=== PATIENT | male | born 1960 | race Two or more races ===

== ENCOUNTER → 2024-02-27 | Outpatient (CLI) | payer MEDICARE, MEDICAID, SELFPAY ==
--- NOTE | 2024-02-27 10:28 | XR_ITS ---
Examination: Foot, right, 3 views Technique: AP, oblique, lateral views foot, 3 views Date and time of exam: February 27, 2024 1142 hours INDICATIONS: Right foot pain beginning one week ago. FINDINGS: Moderate narrowing first metatarsophalangeal joint 4 mm plantar bony calcaneal spur. No fracture or dislocation. No cortical bone destruction Mild narrowing tibiotalar joint IMPRESSION: Moderate narrowing first metatarsophalangeal joint Mild osteoarthritis tibiotalar joint 4 mm plantar bony calcaneal spur
== END | disposition home or self-care (01) ==
PROVIDERS: PCP Family Medicine; Referring Provider Podiatrist; Visit Provider Podiatrist
DX: M19.071 Primary osteoarthritis, right ankle and foot (principal); M77.31 Calcaneal spur, right foot; M25.871 Other specified joint disorders, right ankle and foot
CPT/HCPCS: 73630

== ENCOUNTER → 2024-05-25 | Outpatient (CLI) | payer MEDICARE, MEDICAID, SELFPAY ==
--- NOTE | 2024-05-25 07:00 | XR_ITS ---
Examination: MRI right foot, without contrast Date and time of exam: May 25, 2024 0724 hrs. Indications: With pain 2 months with walking, diabetic Technique: Multiple axial sagittal and coronal images of the right foot have been obtained with the Siemens high-resolution 1.5 [employer] MRI scanner. Images obtained include T2-weighted fat-suppressed sagittal sections, TR 3500, TE 46, T2 weighted coronal fat suppressed images, TR 3050, TE 84, T2-weighted transverse fat suppressed images, TR 3260, TE 63, proton density transverse images, TR 4720 TE 46, and T1 weighted coronal images, TR 560, TE 13. Findings: Moderate osteoarthritis first metatarsophalangeal joint No fracture No avascular necrosis Significant osteoarthritis first tarsometatarsal joint No soft tissue abscess No cortical bone destruction Mild narrowing tibiotalar joint Mild plantar fasciitis Impression: Moderate osteoarthritis first metatarsophalangeal joint Significant osteoarthritis first tarsometatarsal
== END | disposition home or self-care (01) ==
LOC: SMRI 06:58
PROVIDERS: PCP Family Medicine; Referring Provider Internal Medicine Gastroenterology; Visit Provider Internal Medicine Gastroenterology
DX: M19.071 Primary osteoarthritis, right ankle and foot (principal)
CPT/HCPCS: 73718

== ENCOUNTER 2025-01-24 09:08 | Emergency (ER) | payer MEDICARE, MEDICAID, SELFPAY ==
[2025-01-24 09:09] VITALS: BMI 30.2
[2025-01-24 09:33] VITALS: BP 140/97; PULSE 68; RESP 18; TEMP 36.9; O2SAT 98
--- NOTE | 2025-01-24 09:34 | XR_ITS ---
Examination: CT abdomen and pelvis without contrast. Coronal 3-D reconstructions. Sagittal 2-D reconstructions. Date and time of exam: January 24, 2025, 10:16 a.m. INDICATIONS: Left testicular pain lower abdominal pain today CTDI: vol (mGy): 7.84 DLP: (mGycm): 488 Technique: Axial images of the abdomen have been obtained, 3 mm slice thickness Intravenous contrast material has not been administered. Low dose protocols were performed. One or more of the following dose reduction techniques were used; automated exposure control, adjustment of the mA and/or KV according to patient size, use of iterative reconstruction technique. Findings: No visualized liver or splenic lesion No gallstones No pancreatic or adrenal mass Minimal perinephric stranding No renal or ureteral calculi, no hydronephrosis Normal appendix Prostatomegaly, transverse dimension 5.5 cm Contracted urinary bladder with mild urinary bladder wall thickening Fat-containing inguinal hernias IMPRESSION: Minimal perinephric stranding, consider urinary tract infection No renal or ureteral calculi, no hydronephrosis Normal appendix Moderate prostatomegaly Urinary bladder wall thickening, mild, consider cystitis
--- NOTE | 2025-01-24 09:47 | EDNOTE_ITS ---
<Statement entered by Amee Real MD - 01/24/25 17:56> As co-signing physician, I was present and available for consult prn. I concur with the plan and care as documented by the midlevel provider. ED Abdominal Pain RME/HPI General Chief Complaint: Abdominal Pain Stated complaint: ABD PAIN FOR 3 DAYS Time seen by provider: 01/24/25 09:35 Arrival date/time: 01/24/25 09:08 64-year-old male with a history of hyperlipidemia, type 2 diabetes presents to the emergency room with a chief complaint of left groin pain x 3 days Source: patient Mode of arrival: ambulatory Limitations: no limitations Related Data Home Medications ?Medication ?Instructions ?Recorded ?Confirmed lisinopril 10 mg tablet 10 mg PO QDAY 01/18/2009/16 metformin 1,000 mg tablet 1,000 mg PO QDAY 01/18/20 atorvastatin 40 mg tablet 40 mg PO HS 09/17/23 4 empagliflozin 25 mg tablet 25 mg PO QDAY 09/17/2306/07 (Jardiance) gabapentin 300 mg capsule 300 mg PO HS 09/17/23 insulin glargine U-300 conc 300 12 unit subcut HS 06/0709/17/23 unit/mL (1.5 mL) subcutaneous pen (Toujeo SoloStar U-300 Insulin) mometasone-formoterol HFA 200 2 puff inhalation BID 09/17/23 mcg-5 mcg/actuation aerosol inhaler (Dulera) semaglutide 0.25 mg or 0.5 mg (2 0.25 mg subcut QMONTH 09/17/23 09/17/23 mg/3 mL) subcutaneous pen injector (Ozempic) Previous Rx's ?Medication ?Instructions ?Recorded acetaminophen 325 mg capsule 650 mg (2 x 325 mg) PO QI D PRN 01/24/25 fever or pain 7 days #30 caps Allergies Allergy/AdvReac Type Severity Reaction Status Date / Time No Known Allergies Allergy Verified 01/24/25 09:10 Review of Systems Review of Systems Systems Reviewed: All systems reviewed, normal except as documented Constitutional Constitutional: Reports system reviewed and no additional complaints, except as documented, Denies fatigue, Denies fever(s), Denies headache(s) and Denies weakness Eyes Eyes: Reports system reviewed and no additional complaints, except as documented, Denies blurry vision and Denies change in vision ENT Ears, Nose, Mouth, and Throat: Reports system reviewed and no additional complaints, except as documented, Denies otalgia, Denies headache(s), Denies nasal congestion, Denies throat swelling and Denies vertigo Cardiovascular Cardiovascular: Reports system reviewed and no additional complaints, except as documented, Denies chest pain, Denies dyspnea and Denies dyspnea on exertion Respiratory Respiratory: Reports system reviewed and no additional complaints, except as documented, Denies chest congestion, Denies cough, Denies dyspnea, Denies dyspnea on exertion and Denies wheezing Gastrointestinal Gastrointestinal: Reports system reviewed and no additional complaints, except as documented, Reports abdominal pain, Reports cramping, Reports nausea and Denies vomiting Genitourinary Genitourinary: Reports system reviewed and no additional complaints, except as documented, Denies dysuria and Denies hematuria Musculoskeletal Musculoskeletal: Reports system reviewed and no additional complaints, except as documented and Denies back pain Integumentary/Breasts Skin/Breast: Reports system reviewed and no additional complaints, except as documented and Denies wounds Neurologic Neurologic: Reports system reviewed and no additional complaints, except as documented, Denies confusion, Denies headache(s), Denies lack of coordination, Denies vertigo and Denies weakness Psychiatric Psychiatric: Reports system reviewed and no additional complaints, except as documented, Denies anxiety, Denies confusion, Denies depression, Denies paranoia, Denies suicidal ideation and Denies tactile hallucinations Endocrine Endocrine: Reports system reviewed and no additional complaints, except as documented and Denies fatigue Hematologic/Lymphatic Hematologic/Lymphatic: Reports system reviewed and no additional complaints, except as documented and Denies lymphadenopathy Allergic/Immunologic Allergic/Immunologic: Reports system reviewed and no additional complaints, except as documented, Denies throat swelling, Denies urticaria and Denies wheezing Past Medical History Past Medical History NEUROLOGIC: Negative Seizures CARDIAC: Positive Cardiac Disorders, Hypercholesterolemia and Hypertension; Negative Congestive Heart Failure RESPIRATORY: Negative Chronic Obstructive Pulmonary Disease (COPD) GASTROINTESTINAL: Positive Gastrointestinal Disorders GENITOURINARY: Negative Genitourinary Disorders or Renal Disease MUSCULOSKELETAL: Negative Musculoskeletal Disorders ENDOCRINE: Positive Endocrine Disorders and Diabetes Mellitus Type 2; Negative Diabetes Mellitus Type 1 HEMATOLOGIC: Negative Blood Disorders OTHER HISTORY: Negative Autoimmune Disease, Blood Transfusions, Blood Transfusion Reaction, Anesthesia Reactions or Cancer Social History SMOKING STATUS: Never smoker ED Exam General Limitations: Present no limitations General appearance: Present alert and in no apparent distress Head Head exam: Present atraumatic Eye Eye exam: Present normal appearance, PERRL and EOMI ENT ENT exam: Present normal exam, normal oropharynx and mucous membranes moist Neck Neck exam: Present normal inspection, full ROM and trachea midline Chest Chest inspection: Present normal inspection and symmetric chest wall rise Respiratory Respiratory exam: Present normal lung sounds bilaterally Cardiovascular Cardiovascular exam: Present regular rate, normal rhythm and normal heart sounds Abdominal Exam Abdominal exam: Present soft, tenderness and normal bowel sounds; Absent distention, guarding, rebound, rigidity, Gomez's sign, Rovsing's sign or tenderness at McBurney's Point Abdominal tenderness: Present LLQ, suprapubic and mild Extremities Exam Extremities exam: Present normal inspection and full ROM Back Exam Back exam: Present normal inspection and full ROM Neurological Exam Neurological exam: Present alert, oriented X3 and CN II-XII intact Psychiatric Psychiatric exam: Present normal affect and normal mood Skin Skin exam: Present warm, dry, intact and normal color Course Quality Measures none Orders Category Date Time Status CT abdomen pelvis wo con Stat Exams 01/24/25 09:34 Completed CBC Stat Lab 01/24/25 09:40 Completed CMP [Comprehensive Metabolic Panel] Stat Lab 01/24/25 09:40 Completed Lipase Stat Lab 01/24/25 09:40 Completed UA [Urinalysis] Stat Lab 01/24/25 10:17 Completed Urine Culture Stat Lab 01/24/25 10:17 Received Ketorolac Inj [Toradol Inj] Med 01/24/25 09:34 Discontinued 30 mg IM X1 ONE Vital Signs Vital signs: Vital Signs Temperature 98.5 F 01/24/25 09:33 Pulse Rate 68 01/24/25 09:33 Respiratory Rate 18 01/24/25 09:33 Blood Pressure 140/97 H 01/24/25 09:33 Pulse Oximetry (%) 98 01/24/25 09:33 Oxygen Delivery Method Room Air 01/24/25 09:33 Abdominal Pain MDM MDM Narrative MDM Narrative:: 64-year-old male with a history of hyperlipidemia, type 2 diabetes presents to the emergency room with a chief complaint of left groin pain x 3 days Patient is hemodynamically stable and in no apparent distress Physical examination shows tenderness and pain to the patient's left groin area. Patient denies any tenderness to any other part of his abdomen including the right upper quadrant or left upper quadrant or epigastric area. The patient blood work showed an elevated lipase level. There is no obstruction bilirubin levels are within normal limits and there is no tenderness to the upper part of the patient's abdomen. A CT of the abdomen and pelvis was completed and does not show any acute pancreatitis. I spoke to the patient and told him to follow- up with his primary care provider regarding this elevated level in his blood. Patient was discharged and educated to follow-up with primary care provider in the next 24 to 48 hours and return to the emergency room for any evidence of worsening signs or symptoms Patient data External records reviewed:: [facility] previous records Clinical information provided by:: patient Social determinants that could affect healthcare access:: none Patient has the following chronic illnesses:: No chronic illness How is presenting disease/condition affected by chronic disease/condition?: no chronic disease Evaluation data The following diagnostics were reviewed and interpreted by me:: lab results and radiology exam(s) Lab and/or radiology exams considered but not ordered:: Labs and radiology exams considered and ordered Interpretation Summary: CT abdomen and pelvis-Findings: No visualized liver or splenic lesion No gallstones No pancreatic or adrenal mass Minimal perinephric stranding No renal or ureteral calculi, no hydronephrosis Normal appendix Prostatomegaly, transverse dimension 5.5 cm Contracted urinary bladder with mild urinary bladder wall thickening Fat-containing inguinal hernias IMPRESSION: Minimal perinephric stranding, consider urinary tract infection No renal or ureteral calculi, no hydronephrosis Normal appendix Moderate prostatomegaly Urinary bladder wall thickening, mild, consider cystitis Medications / Prescriptions Medications or Prescriptions considered but not ordered:: N/A Medication administrations:: Medication Administration History Discontinued Medications Ketorolac Tromethamine (Ketorolac Inj 60 Mg/2 Ml Vial) 30 mg IM X1 ONE Stop: 01/24/25 09:35 Last Admin: 01/24/25 09:51 Dose: Not Given Documented By: NIHARIKA Non-Admin Reason: Cancelled by Provider N/A Consultations Consultation(s) initiated? (list below): No Diagnosis Differential diagnosis abdominal pain: abdominal pain, gastroenteritis and other (Groin pain) Most likely diagnosis given after review of the tests above:: Gastroenteritis Admission Indicated Admission indicated?: not indicated Admission Request Was there a request for admission?: No Disposition Plan Disposition Plan: Discharge Discharge Attestation Discharge Attestation: The patient and all family members were given an opportunity to ask questions and understood the discharge instructions. Discharge instructions specifically effects, indications for sooner follow up or return to the emergency department, and the expected course of current diagnosis. Patient condition: Stable Discharge Plan Plan Patient Disposition: HOME (Self Care) Discharge Disposition comment: Stable Prescriptions/Referrals Prescriptions/Med Rec: New acetaminophen 325 mg capsule 650 mg PO QID PRN (Reason: fever or pain) 7 Days Qty: 30 0RF No Action metformin 1,000 mg Tablet 1,000 mg PO QDAY lisinopril 10 mg Tablet 10 mg PO QDAY atorvastatin 40 mg tablet 40 mg PO HS Patient Comments: TAKE 1 TABLET BY MOUTH EVERY DAY gabapentin 300 mg capsule 300 mg PO HS Patient Comments: TAKE 1 CAPSULE BY MOUTH AT BEDTIME Dulera 200-5 mcg/actuation HFA aerosol inhaler 2 puff INHALATION BID Patient Comments: INHALE 1 PUFF BY MOUTH TWICE DAILY Jardiance 25 mg tablet 25 mg PO QDAY Patient Comments: TAKE 1 TABLET BY MOUTH EVERY DAY insulin glargine U-300 conc [Toujeo SoloStar U-300 Insulin] 300 unit/mL (1.5 mL) insulin pen 12 unit SUBCUT HS Patient Comments: ADMINISTER 12 UNITS UNDER THE SKIN EVERY DAY AT BEDTIME Ozempic 0.25 mg or 0.5 mg (2 mg/3 mL) pen injector 0.25 mg SUBCUT QMONTH Patient Comments: INJECT 0.5MG UNDER THE SKIN ONCE WEEKLY Problem List Clinical Impression: Gastroenteritis Patient/Caregiver Discharge Instructions Education Materials: ED Gastroenteritis, Noninfectious Additional Instructions: Por favor, acuda a hernandez m?dico de cabecera en las pr?ximas 24 a 48 horas. Akya an?lisis de michelle mostraron david elevaci?n de kaya niveles de lipasa. Actualmente no presenta obstrucci?n ni evidencia de pancreatitis. Por favor, acuda a hernandez m?dico de cabecera para el manejo de estos niveles elevados. Si observa alg?n empeoramiento de los signos o s?ntomas, regrese a urgencias de inmediato. Print Language: Salvadorean Stand Alone Forms: Tahira Award Info., Patient Portal Info Letter PA/ATHLETIC COORDINATOR Supervising Physician PA/ATHLETIC COORDINATOR Supervising Physician: Dr. Aguiar
[2025-01-24 09:50] VITALS: BP 153/92; PULSE 69; RESP 18; TEMP 36.7; O2SAT 97; BMI 30.2
[2025-01-24 10:19] LABS: Basophils # (Auto) 0.1 Thou/mm3 (0.0-0.2); Basophils % (Auto) 1 % (0-2.5); Eosinophils # (Auto) 0.5 Thou/mm3 (0.0-0.5); Eosinophils % (Auto) 6 % (0-10); Hematocrit 47.3 % (41.0-53.0); Hemoglobin 15.7 g/dL (13.5-16.0); Immature Granulocytes Auto 0.04 Thou/mm3 (0.00-0.00); Lymphocytes # (Auto) 2.5 Thou/mm3 (1.0-4.8); Lymphocytes % (Auto) 32 % (10-50); Mean Corpuscular HGB Conc 33.2 g/dl (31.0-37.0); Mean Corpuscular Hemoglobin 27.8 pg (25.0-35.0); Mean Corpuscular Volume 84 fL (80-100); Monocytes # (Auto) 0.6 Thou/mm3 (0.0-0.8); Monocytes % (Auto) 8 % (0-12); Neutrophils # (Auto) 4.1 Thou/mm3 (1.8-7.7); Neutrophils % (Auto) 53 % (37-80); Nucleated Red Blood Cell # 0.00 Thou/mm3 (0.00-0.00); Nucleated Red Blood Cell % 0 /100 WBC (0); Platelet Count 212 Thou/mm3 (140-440); RDW Standard Deviation 43.7 fL (35.1-43.9); Red Blood Count 5.65 Miln/mm3 (4.50-5.90); White Blood Count 7.8 Thou/mm3 (3.8-10.6)
[2025-01-24 10:26] LABS: Collection Type, Urine Clean Catch; Squamous Epithelial Cell,Urine 0 /hpf (0-5)
[2025-01-24 10:47] LABS: Bilirubin,Urine Negative (Negative); Blood,Urine Negative (Negative); Clarity,Urine Clear (Clear/Hazy); Color,Urine Lt-Yellow (Lt Yel-Yel); Glucose, Urine 4+ (Negative); Ketones,Urine Negative (Negative); Leukocyte Esterase,Urine Negative (Negative); Nitrite,Urine Negative (Negative); PH,Urine 6.0 (5.0-7.0); Protein,Urine Negative (Neg - Trace); RBC,Urine < 1 /hpf (0-3); Specific Gravity,Urine 1.023 (1.001-1.035); Urobilinogen,Urine Negative mg/dL (0.0-1.0); WBC,Urine 1 /hpf (0-5)
[2025-01-24 10:49] LABS: Alanine Aminotransferase 32 U/L (10-49); Albumin, Serum 4.6 gm/dL (3.4-4.8); Albumin/Globulin Ratio 2.4 (1.2-2.2); Alkaline Phosphatase 132 U/L (46-116); Anion Gap 7 (7-16); Aspartate Amino Transferase 16 U/L (0-34); BUN/Creatinine Ratio 20 Ratio (12-20); Bilirubin,Total 0.4 mg/dL (0.3-1.2); Blood Urea Nitrogen 16 mg/dL (9-23); Calcium 9.2 mg/dL (8.3-10.6); Calcium (Corrected) 9.2 mg/dL (8.5-10.1); Carbon Dioxide 26.8 mMol/L (20.0-31.0); Chloride 107 mMol/L (98-107); Creatinine (Component) 0.8 mg/dL (0.6-1.3); Estimated Creatinine Clearance 92.3 mL/min (>60); Globulin 1.9 gm/dL (2.3-3.5); Glucose 118 mg/dL (74-106); Lipase 431 U/L (12-53); Osmolality,Calculated 283 (275-295); Potassium 4.0 mMol/L (3.4-5.1); Sodium 141 mMol/L (136-145); Total Protein 6.5 gm/dL (5.7-8.2); eGFR > 60 See Note
== END 2025-01-24 12:58 | disposition home or self-care (01) ==
PROVIDERS: Nurse Practitioner Family; Emergency Provider Emergency Medicine
DX: N39.0 Urinary tract infection, site not specified (principal); E11.9 Type 2 diabetes mellitus without complications; E78.5 Hyperlipidemia, unspecified; K40.90 Unilateral inguinal hernia, without obstruction or gangrene, not specified as recurrent; N40.1 Benign prostatic hyperplasia with lower urinary tract symptoms
CPT/HCPCS: 36415; 74176; 80053; 81001; 83690; 85025; 87086; 99283